=== PATIENT | female | born 1990 | race Hispanic/Latino ===

== ENCOUNTER → 2023-06-29 10:38 | Outpatient (CLI) | payer OTHER, SELFPAY ==
[2023-06-29 12:23] LABS: Hematocrit 36.4 % (36-46); Hemoglobin 12.7 g/dL (12.0-16.0)
[2023-06-29 12:49] LABS: GTT (PREG) 1 Hour PP 50gm Dose 173 mg/dL (76-139)
== END ==
PROVIDERS: Referring Provider Obstetrics & Gynecology; Visit Provider Obstetrics & Gynecology
DX: Z34.00 Encounter for supervision of normal first pregnancy, unspecified trimester (principal)
CPT/HCPCS: 36415; 82950; 85014; 85018

== ENCOUNTER → 2023-07-01 08:06 | Outpatient (CLI) | payer OTHER, SELFPAY ==
[2023-07-01 11:22] LABS: Glucose Tol Interp,Gestational INTERPRETATION
[2023-07-01 20:31] LABS: Glucose Fasting Gestational 94 mg/dL (76-95)
[2023-07-01 20:34] LABS: Glucose 1 Hour Gest 219 mg/dL (76-180)
[2023-07-01 21:09] LABS: Glucose 2 Hour Gest 193 mg/dL (76-155)
[2023-07-01 21:09] LABS: Glucose 3 Hour Gest 126 mg/dL (76-140)
== END ==
PROVIDERS: Referring Provider Obstetrics & Gynecology; Visit Provider Obstetrics & Gynecology
DX: R73.09 Other abnormal glucose (principal)
CPT/HCPCS: 36415; 82951; 82952

== ENCOUNTER → 2023-07-09 07:02 | Outpatient (CLI) | payer OTHER, SELFPAY ==
--- NOTE | 2023-07-09 07:03 | DI.US.S_ITS ---
PROCEDURE: US OB LIMITED INDICATIONS: interval growth scan, late transfer of care at 26wga OUTSIDE/PRIOR DATING DATA: Last menstrual period (LMP): 12/24/2022. LMP-based estimated date of delivery (SINCERE): 09/30/2023. (Working SINCERE) First dating scan (date and location): 05/11/2023. Estimated date of delivery (SINCERE) from first dating scan: 09/27/2023. TECHNIQUE: Real-time scanning was performed of the fetus, with image documentation. COMPARISON: None. FINDINGS: A single living intrauterine gestation is present. Presentation: Vertex. Placenta: Placental position is anterior, without previa. Amniotic fluid index: 18.9 cm, normal range is 5-24 cm. Single deepest vertical pocket is 4.5 heart rate: 145 beats per minute. Maternal cervical canal: 4.5 cm long. Normal lower limit is 2.5 cm. Clinically estimated gestational age: 28 weeks and 1 day Estimated gestational age from initial scan: 28 weeks and 4 days Estimated EFW is 70 percentile, 1316 g. BPD is 7 cm, 28 weeks Head circumference is 25.9 cm, 28 weeks and 1 day Abdominal circumference is 25.6 cm, 29 weeks and 5 days Femur length is 5.3 cm, 28 weeks and 2 days. IMPRESSION: Living intrauterine gestation at 28 weeks and 1 day. EFW at the 70th percentile. Normal fluid. Vertex presentation. Dictated by: Edin Samayoa M.D. on 07/09/2023 at 10:20 Approved by: Edin Samayoa M.D. on 07/09/2023 at 10:23
== END ==
PROVIDERS: Referring Provider Obstetrics & Gynecology; Visit Provider Obstetrics & Gynecology
DX: Z34.03 Encounter for supervision of normal first pregnancy, third trimester (principal); Z3A.28 28 weeks gestation of pregnancy; O24.419 Gestational diabetes mellitus in pregnancy, unspecified control; Z3A.38 38 weeks gestation of pregnancy; Z71.3 Dietary counseling and surveillance
CPT/HCPCS: 76815; 97802

== ENCOUNTER → 2023-07-09 07:03 | Outpatient (CLI) | payer OTHER, SELFPAY ==
--- NOTE | 2023-07-09 08:13 | DIAB.GDA ---
Initial Gestational Diabetes Assessment Name: Darlene Albert Date: 07/09/23 Time: 605-430a Dx: Gestational Diabetes Provider: Sandra SINCERE: 09/30/2023 Weeks: 28 Presents with spouse, Chris, today. FH of DM with maternal grandmother. Wanting to know BG goals. Started tracking macros. Was feeling panicky about new diagnosis. Feels she has over reduced food intake as a result. Questions about sugar beverages, BG goals. Does not go out to eat much. Cooks at home and avoids sugar. Craves coke, but not drinking those now. Trying to stay under 140g CHO per day,under [employer] for . Aiming for higher PRO. Diet Recall: : 2-3 eggs, strawberries x 1/2c or 2 cuties, gonsalves or swiss gonsalves +/- 8oz OJ OR Special K yogurt cereal sn: nothing or yogurt plain with berries and granola 11a-12p: salad with berries and salmon 2-4p: leftovers OR Meat, +/- potatoes or 1/2-1c rice with veggies 6-7p: Chicken or beef with veggies 10p: PB bar Beverages: 40oz water x 4, OJ x 4oz Drinking milk due to instead of her usual almond milk per recs by her mom. Anthropometrics: Ht: 62 Wt: 182# 06/2023 Prepregnancy wt: 160# Physical Activity: Walking 4-5x per week for 40 mins (2mi). Yoga and stretching. Self-Monitoring Blood Glucose: Starting checking FBG and 2 hour pc. Did not sleep well last night which likely impacted FBG today, c/o headache this morning. Anxious about this appt. Date Pre Post Pre Post Pre Post HS 07/06 79 111 73 104 07/07 73 118 OJ w/breakfst 102 95 07/08 100 Diabetes Medications: None Pertinent Labs: Screen 173 OGTT: 94, 219H, 193H, 126 Nutrition Rx: Carbohydrates: Daily: 180g Meal: 45-g lunch and dinner; 30g breakfast Snack: 15-30g Nutrition Diagnosis: Altered nutrition related lab value r/t GDM dx aeb recent OGTT Food and nutrition related knowledge deficit r/t new dx GDM aeb pt report and diet recall Intervention: This participant was very receptive. Provided appropriate educational handouts. Discussed the following topics: GDM pathophysiology and impact of hyperglycemia on mom and baby Plate Method, meal timing, carb counting, pairing macronutrients and spreading out CHO for better BG management Blood glucose goals (FBG: <95 and 2 hour <120 mg/dL); importance of checking 4x per day (FBG and pc) Impact of macronutrients on blood glucose Recommended servings for carbohydrates at meals and snacks Brainstormed appropriate meal plan based on her food preferences Role of physical activity and following provider guidelines for safety Impact of sugar beverages on BG Milk options during and nutrients provided--choosing Calcium food options Goals: Can switch to unsweet almond milk try to eat q 3-4 hours Aim for 45g CHO at lunch and dinner Avoid sugar beverages Follow-up: IMAN RAZA follow-up in one week Sachi Ayers RDN, LUZ MARINA Certified Diabetes Care and Jinrikisha Driver T: [phone] F: [phone] [email or web address] Thank you for this referral
== END ==
PROVIDERS: Referring Provider Student in an Organized Health Care Education/Training Program
DX: O24.419 Gestational diabetes mellitus in pregnancy, unspecified control (principal); Z3A.28 28 weeks gestation of pregnancy; Z71.3 Dietary counseling and surveillance
CPT/HCPCS: 76815; 97802

== ENCOUNTER → 2023-07-21 15:19 | Outpatient (CLI) | payer OTHER, SELFPAY ==
--- NOTE | 2023-07-21 15:29 | DIAB.GDFU ---
Addendum entered by Sachi Ayers 07/28/23 10:27: Difficulty with virtual visits. This check in was via phone call. 31 weeks today. Checking at 2 hours more consistently. Avoiding eating out at this time. Reports some poor sleep impacting fasting numbers. Reports some symptoms of stuffy nose and sore throat. Frequent waking due to this. Date Pre Post Pre Post Pre Post Notes 07/21 91 84 80 07/22 92 115 127 86 07/23 86 104 170 hamburger and fries 07/24 91 85 113 07/25 103 122 95 103 07/26 107 118 89 Elevated fasting: poor sleep 07/27 85 Breakfast:burrito with low carb ww tortilla (no fruit or hashbrowns) Lunch: Salad and salmon OR pasta x 3/4c OR beef with veggies Dinner: chicken, veggies snacks: plain yogurt berries and granola (10a-12p) and HS snack pb bar OR yogurt with granola Try to add pasta 3/4c or med potato to dinner Aim for 4 BG checks per day Aim for 2 snacks per day follow-up in one week. OB this week. Original Note: Follow-up Gestational Diabetes Assessment Name: Darlene Albert Date: 07/21/23 Time: 330-410p Dx: Gestational Diabetes Provider: Sandra SINCERE: 09/30/2023 Weeks: 30 Presents virtually using [facility] Portal. Trying to prepare more for meals. With recent eating out had some elevations, 179 and 195mg/dl. Now avoiding pizza, had elevation after. Diet Recall: 7a: breakfast burritos (35g tortilla) and fruit (3-4 berries) 10a: plain protein yogurt and berries and seeds/nuts 12-1p: salmon, salad, strawberries with trail mix OR potatoes, chicken, veggies 4p: same as lunch 6-7p: chicken with veggies stir heath +/- potatoes 1/4c OR taco x 1-2 OR quesadilla OR steak and veggies 10p: PB bar or nothing Beverages: 40oz water x 4 cut out OJ Coffee with a little creamer No longer drinking milk. Having two string cheeses per day. Asking about bread for breakfast. Anthropometrics: Ht: 62 Wt: 184.25# 07/14/2023 Prepregnancy wt: 160# Physical Activity: Walking 4-5x per week for 40 mins (2mi). Yoga and stretching. Wants to start stationary bike. More sciatic nerve pain per report. Self-Monitoring Blood Glucose: Checking FBG and 2 hour pc. Reports OB discussed checking TID, FBG and 2 x 2 hour pc, if painful. Pricking on side of finger to reduce pain. States she does not mind checking 4 x per day. given variations after meals and so many missing data points, RD thinks she may benefit from more consistent SMBG. Worries about running out of strips. Reviewed box and has 3 refills left. Quite variable readings postprandial. Often later than 2 hours and ranging from as low as 76 up to 191. Asking about CGM, however unlikely to be covered since she is not currently needing insulin therapy. Date Pre Post Pre Post Pre Post notes 07/14 77 140 125 07/15 84 115 07/16 82 191 pizza 07/17 83 76 HS 68mg/dl Dinner: salad, potato, and protein 07/18 78 125 3hr 85 07/19 78 71 Moving homes 07/20 89 110 2.5 hr Diabetes Medications: None Pertinent Labs: Screen 173 OGTT: 94, 219H, 193H, 126 Nutrition Rx: Carbohydrates: Daily: 180g Meal: 45-g lunch and dinner; 30g breakfast Snack: 15-30g Nutrition Diagnosis: Altered nutrition related lab value r/t GDM dx aeb recent OGTT Food and nutrition related knowledge deficit r/t new dx GDM aeb pt report and diet recall- improved Excessive CHO intake r/t eating on the go aeb pt report and BG >170mg/dl- new Intervention: This participant was very receptive. Provided appropriate educational handouts. Discussed the following topics: Recent blood sugar results and impact of food and hormones Review of portion recommendations during usual criteria for CGM rx Bg trends, importance of BG checks at 2 hours vs 3, encouraged 3-4 checks per day especially FBG, pc breakfast and pc dinner. Eating out portion recommendations CHO recs for breakfast Goals: Can switch to unsweet almond milk- d/c try to eat q 3-4 hours- met Aim for 45g CHO at lunch and dinner- in progress Avoid sugar beverages- met Cut out fruit with burrito for breakfast- new Try check BG no later than 2 hour pc- new Check 3-4x per day- new Follow-up: IMAN RAZA follow-up in one week Sachi Ayers RDN, LUZ MARINA Certified Diabetes Care and Fuselage Framer T: [phone] F: [phone] [email or web address] Thank you for this referral
== END ==
PROVIDERS: Referring Provider Student in an Organized Health Care Education/Training Program
DX: O24.419 Gestational diabetes mellitus in pregnancy, unspecified control (principal); Z3A.30 30 weeks gestation of pregnancy; Z71.3 Dietary counseling and surveillance
CPT/HCPCS: 97803

== ENCOUNTER → 2023-08-04 15:09 | Outpatient (CLI) | payer OTHER, SELFPAY ==
--- NOTE | 2023-08-04 15:10 | DIAB.GDFU ---
Follow-up Gestational Diabetes Assessment Name: Darlene Albert Date: 08/04/23 Time: 305-350p Dx: Gestational Diabetes Provider: Sandra SINCERE: 09/30/2023 Weeks: 32 Darlene presents for GDM visit virtually using [facility] Portal. Plans for US today, growth scan. Reports frequent urination, 4 x each night. Questions regarding lancet disposal and use. Reports feeling very hungry late in the night. Sometimes skips HS snack. Some breakfasts high in CHO with toast and banana, causing elevations. Also, sometimes eating out causing elevations, ie sushi rolls. Diet Recall: -9a: breakfast burritos on low CHO tortilla OR toast with eggs, fruit, gonsalves 12p: Salad with salmon or veggies with chx/steak 2-3p: chicken ravioli + chx on side 6-7p: chicken or beef or salmon with veggies and salad added potatoes sn: nothing or protein bar bed: 10-11p 3-4 x 40oz per day water Aiming for protein bar before bed. Anthropometrics: Ht: 62 Wt: 185# 07/30/2023 Prepregnancy wt: 160# Physical Activity: Walking 4-5 days per week x 30-40 mins. Some body weight exercises. Went to birthing classes and learned some exercises from PT. Self-Monitoring Blood Glucose: 2/7 elevated FBG. 2/7 elevated pc breakfast. 1/6 elevated pc lunch. 2/5 elevated pc dinner. Elevations after meals are directly related to excessive CHO intake. Some poor sleep may be contributing to elevated fastings. If FBG continue above goal, would benefit from insulin therapy. Date Pre Post Pre Post Pre Post HS 07/28 99 95 81 112 07/29 91 104 89 112 07/30 87 77 152 130 lunch cooked sushi roll 07/31 92 90 101 x 08/01 84 101 94 123 08/02 97 154 81 111 breakfast: extra creamer in coffee, burrito, fruit 08/03 93 128 breakfast: eggs, 2 toast, cheese, banana Diabetes Medications: None Pertinent Labs: Screen 173 OGTT: 94, 219H, 193H, 126 Nutrition Rx: Carbohydrates: Daily: 180g Meal: 45-g lunch and dinner; 30g breakfast Snack: 15-30g Nutrition Diagnosis: Altered nutrition related lab value r/t GDM dx aeb recent OGTT Excessive CHO intake r/t eating on the go aeb pt report and BG >170mg/dl- improved Intervention: This participant was very receptive. Provided appropriate educational handouts. Discussed the following topics: Sharps disposal Carb recs at breakfast consistent HS snack for BG and hunger Physical activity Sleep Goals: Try to add pasta 3/4c or med potato to dinner- met Aim for 4 BG checks per day - met Aim for 2 snacks per day - improved Have a snack at 9-10p- new Choose bread OR fruit at breakfast- new Low carb tortilla, can add fruit-new Follow-up: IMAN RAZA follow-up in two weeks. OB visit in one week. Darlene may benefit from medication management, however at this time most of her BG are in range. Poor sleep and diet seem to be the main factors in her hyperglycemia. Sachi Ayers RDN, CDCES Certified Diabetes Care and Float Builder T: [phone] F: [phone] [email or web address] Thank you for this referral
== END ==
PROVIDERS: Referring Provider Student in an Organized Health Care Education/Training Program
DX: O24.419 Gestational diabetes mellitus in pregnancy, unspecified control (principal); Z3A.32 32 weeks gestation of pregnancy; Z71.3 Dietary counseling and surveillance
CPT/HCPCS: 97803

== ENCOUNTER → 2023-08-04 16:48 | Outpatient (CLI) | payer OTHER, SELFPAY ==
--- NOTE | 2023-08-04 16:49 | DI.US.S_ITS ---
PROCEDURE: US OB LIMITED INDICATIONS: A1 GDM OUTSIDE/PRIOR DATING DATA: Last menstrual period (LMP): 12/24/2022 LMP-based estimated date of delivery (SINCERE): 09/30/2023 First dating scan (date and location): 05/11/2023 Estimated date of delivery (SINCERE) from first dating scan: 09/27/2023 Working SINCERE is 09/30/2023. TECHNIQUE: Real-time scanning was performed of the fetus, with image documentation and biometric measurements. Endovaginal scanning: Not performed. COMPARISON: [facility], OB LIMITED, 07/09/2023, 7:33. FINDINGS: General: A single living intrauterine gestation is present. Presentation: Vertex Placenta: Placental position is anterior, without previa. Amniotic fluid index: 13.1 cm, normal range is 5-24 cm. Single deepest vertical pocket is 5.8 cm. heart rate: 136 beats per minute. Maternal cervical canal: 2.9 cm long. Normal lower limit is 2.5 cm. biometrics: Biparietal diameter: 8.2 cm, 33 weeks 0 days Head circumference: 30.1 cm, 33 weeks 3 days Abdominal circumference: 29.3 cm, 33 weeks 2 days Femur length: 6.4 cm, 33 weeks 0 days Clinically estimated gestational age: 31 weeks 6 days Composite gestational age from present scan: 33 weeks 1 day Estimated weight and percentile: 2133 g, 80th percentile IMPRESSION: 1. Single live intrauterine with appropriate interval growth. 2. Estimated weight is at the 80th percentile for clinical gestational age. Approved by: Satish Kern M.D. on 08/05/2023 at 10:58
== END ==
PROVIDERS: Referring Provider Obstetrics & Gynecology; Visit Provider Obstetrics & Gynecology
DX: O24.419 Gestational diabetes mellitus in pregnancy, unspecified control (principal); Z3A.33 33 weeks gestation of pregnancy; Z3A.32 32 weeks gestation of pregnancy; Z71.3 Dietary counseling and surveillance
CPT/HCPCS: 76815; 97803

== ENCOUNTER → 2023-08-18 16:21 | Outpatient (CLI) | payer OTHER, SELFPAY ==
--- NOTE | 2023-08-18 16:23 | DIAB.GDFU ---
Follow-up Gestational Diabetes Assessment Name: Darlene Albert Date:08/18/23 Time:208-240p Dx: Gestational Diabetes Provider: Sandra SINCERE: 09/30/2023 Weeks: 34 Darlene presents for telehealth follow-up using Portal. Sees OB next Wednesday at 35 weeks. Doesn?t want a c section and worries if baby is LGA she may need one. Last growth scan indicates 80th percentile. Reports really wanting to try vaginal first. Today we discussed risks with LGA. Doing yogurt with berries parfaits for breakfast Started Metformin 500 mg daily 08/10, but still having significant fasting elevations. Plan for CGM sample and insulin demo Goals: Snack yes Choosing bread or fruit- yes usually fruit Low carb tortilla- yes 1x per week Anthropometrics: Ht: 62 Wt: 185# last OB 08/11/23 Prepregnancy wt: 160# Self-Monitoring Blood Glucose: FBG continue to be above goal. Some elevated postprandial after dinner primarily. Would recommend insulin therapy HS for FBG management. She has questions regarding insulin and feeling as though she does not know how to navigate this. Date Pre Post Pre Post Pre Post notes 08/11 87 111 134 08/12 103 73 100 100 08/13 92 115 92 89 08/14 100 102 103 106 7/ 99 105 125 137 Sweet snack 08/16 100 114 129 08/17 100 91 Diabetes Medications: 500mg Metformin Pertinent Labs: Screen 173 OGTT: 94, 219H, 193H, 126 Intervention: This participant was very receptive. Provided appropriate educational handouts. Discussed the following topics: Recent blood sugar results and impact of hormones Indications for c section vs vaginal with LGA Impact of hyperglycemia on baby Risk for T2DM and ways to reduce risk Nutrition review Potential for insulin therapy with consistent FBG elevations Brief insulin education on injection and timing Potential for CGM Goals: Have a snack at 9-10p- met Choose bread OR fruit at breakfast- met Low carb tortilla, can add fruit-met Keep eye out for potential insulin rx- new Follow-up: IMAN RAZA follow-up within one week. If insulin is rx'd by provider will see Darlene cara for insulin education. Will check with her before end of this week. This RD did message OB about potential for insulin therapy and BG results. Sachi Ayers, IMAN, [facility] Certified Diabetes Care and Manager Metrology T: [phone] F: [phone] [email or web address] Thank you for this referral
== END ==
LOC: DIET 16:21
PROVIDERS: Referring Provider Obstetrics & Gynecology
DX: O24.415 Gestational diabetes mellitus in pregnancy, controlled by oral hypoglycemic drugs (principal); Z3A.34 34 weeks gestation of pregnancy; Z71.3 Dietary counseling and surveillance
CPT/HCPCS: G0108

== ENCOUNTER → 2023-08-20 16:54 | Outpatient (CLI) | payer OTHER, SELFPAY ==
--- NOTE | 2023-08-20 17:32 | DIAB.GDFU ---
Follow-up Gestational Diabetes Assessment Name: Darlene Albert Date: 08/20/23 Time: 505-6p Dx: Gestational Diabetes Provider: Sandra SINCERE: 09/30/2023 Weeks: 34 Darlene presents for follow-up for insulin education and CGM sample. Sees OB next Wednesday at 35 weeks. Has questions about when to take Metformin. OB agrees with adding insulin therapy HS. Darlene is on board and did well with a return insulin demo. Anthropometrics: Ht: 62 Wt: 185# last OB 08/11/23 Prepregnancy wt: 160# Self-Monitoring Blood Glucose: 97 FBG this morning. Consistent elevated FBG. Date Pre Post Pre Post Pre Post notes 08/11 87 111 134 08/12 103 73 100 100 08/13 92 115 92 89 08/14 100 102 103 106 08/15 99 105 125 137 Sweet snack 08/16 100 114 129 08/17 100 91 Diabetes Medications: 500mg Metformin Pertinent Labs: Screen 173 OGTT: 94, 219H, 193H, 126 Intervention: This participant was very receptive. Provided appropriate educational handouts. Discussed the following topics: Recent blood sugar results Take Metformin with dinner Insulin education Injection education, precautions, returned demo, Rule of 15 for lows CGM sample Reviewed CGM use and equipment Discussed when to check blood sugars using finger stick Reviewed high and low blood sugar signs/symptoms and treatment options Provided education for self-administration of CGM placement Educated patient on alarm settings Discussed when to replace equipment and disposal Goals: Have a snack at 9-10p- met Choose bread OR fruit at breakfast- met Low carb tortilla, can add fruit-met Keep eye out for potential insulin rx- new Take Metformin with dinner - new Wear CGM x 10 days - new Follow-up: IMAN RAZA follow-up within one week. Sachi Ayers RDN, LUZ MARINA Certified Diabetes Care and Mill Manager T: [phone] F: [phone] [email or web address] Thank you for this referral
== END ==
PROVIDERS: Referring Provider Student in an Organized Health Care Education/Training Program
DX: O24.414 Gestational diabetes mellitus in pregnancy, insulin controlled (principal); Z3A.34 34 weeks gestation of pregnancy; Z71.3 Dietary counseling and surveillance
CPT/HCPCS: G0108

== ENCOUNTER → 2023-08-25 08:29 | Outpatient (CLI) | payer OTHER, SELFPAY ==
--- NOTE | 2023-08-25 17:17 | DIAB.GDFU ---
Follow-up Gestational Diabetes Assessment Name: Darlene Albert Date: 08/25/23 Time: 3-271l Dx: Gestational Diabetes Provider: Sandra SINCERE: 09/30/2023 Weeks: 35 Darlene presents for follow-up for GDM. States OB needs dosing recs for NPH. RD messaged recs of starting at 10u HS and OB confirmed rx will be sent today. Continues to have elevated BG. Taking Metformin with dinner. Plans to schedule growth scan today. Recent illness r/t SE from RSV vaccine, now resolved. Has questions regarding T2DM risk reduction. Anthropometrics: Ht: 62 Wt: 187# last OB today Prepregnancy wt: 160# Self-Monitoring Blood Glucose: Per CGM sample results continues to have elevations each morning, often in the low 100s. Also having some postprandial elevations often in the 140-160mg/dl, once 190mg/dl-- she is unsure what she had for dinner that night that may have caused this elevation. After picking up insulin rx, will message provider to send CGM rx as well for best insurance coverage. TIR: 0% over 250mg/dl 18% over 140mg/dl 81% 70-140mg/dl <1% <70mg/dl Diabetes Medications: 500mg Metformin Pertinent Labs: Screen 173 OGTT: 94, 219H, 193H, 126 Intervention: This participant was very receptive. Provided appropriate educational handouts. Discussed the following topics: Recent blood sugar results and impact of food and hormones Review of macronutrient recommendations during Benefits, resources, and nutrition for recommendations for nutrition and physical activity recommendations for T2DM risk reduction OGTT at 6-12 weeks Checking blood sugars twice per week (goal: fasting <100 mg/dL and 2 hour pc <140 mg/dL) until 6 week check-up HgA1c q 1-3 years. Insulin dosing recs and titration Goals: Keep eye out for potential insulin rx- continue Take Metformin with dinner - met Wear CGM x 10 days -continue Follow-up: IMAN RAZA follow-up 1 week for 1:1 visit and will also check -in by Wednesday by messaging or phone on BG via CGM and if insulin therapy started. Sachi Ayers RDN, LUZ MARINA Certified Diabetes Care and Key Holder T: [phone] F: [phone] Thank you for this referral
== END ==
PROVIDERS: Referring Provider Obstetrics & Gynecology
DX: O24.415 Gestational diabetes mellitus in pregnancy, controlled by oral hypoglycemic drugs (principal); Z3A.35 35 weeks gestation of pregnancy; Z71.3 Dietary counseling and surveillance
CPT/HCPCS: G0108

== ENCOUNTER 2023-08-27 16:33 | Outpatient (CLI) | payer OTHER, SELFPAY ==
--- NOTE | 2023-08-27 17:04 | PM.OBTRLD ---
Visit Information Visit Information On-call OB Provider: Maris Bates Reason for Evaluation: Yes non-stress test [facility] Medical History (Updated 08/07/23 @ 16:07 by Pretty Zheng) Chicken pox Migraine without aura (~2019) Gestational diabetes mellitus (GDM) Encounter for supervision in primigravida, antepartum Kidney stone Surgical History (Updated 08/07/23 @ 16:07 by Pretty Zheng) Anesthesia History of oral surgery (~2022) [place] teeth extracted (~2012) Family History (Updated 08/07/23 @ 16:09 by Pretty Zheng) Grandmother Diabetes mellitus Hypertension Uncle Diabetes mellitus Uncle Diabetes mellitus Grandfather Family estrangement Diabetes mellitus Grandmother Dementia Hypertension Kidney disease Brother Hyperlipidemia Brother Mental health problem Social History marital status: number of children: 0 household members: spouse lives independently: Yes caregiver/support person: No housing: apartment pets and animals: No education level: college (some college) occupational status: previously employed current occupational exposures/hazards: No special shiv needs: No travel history: recent (domestic only) seatbelt use: always helmet use: Yes water heater temp set < 120 deg: Yes working smoke detector in home: Yes fire extinguisher in home: No carbon monox detector in home: Yes firearms in home: No do you feel safe at home: Yes Smoking Status: Never smoker second hand exposure: No alcohol intake: former (~2/week when not ) substance use type: does not use during the past year weight has: increased > 10 lbs well-balanced diet: daily or most days daily servings fruits/ve-4 (mostly fruit) caffeine: Yes (minimal) Type(s) of exercise: walking and bicycling (stationary bike) frequency: 3-4 times per week Evaluation Evaluation Baseline heart rate: 130 Variability: Moderate (11-25) monitor accelerations: Present Monitor Decelerations: Absent Category of Tracing: Reactive Diagnosis, Plan/Disposition Final Diagnosis (1) Gestational diabetes mellitus (GDM): Status: Acute Plan/Disposition Plan: Follow-up in clinic as scheduled. OB Disposition: home
== END 2023-08-27 17:20 | disposition home or self-care (01) ==
LOC: OB 08-30 06:48
PROVIDERS: Referring Provider Obstetrics & Gynecology; Visit Provider Obstetrics & Gynecology
DX: O24.414 Gestational diabetes mellitus in pregnancy, insulin controlled (principal); Z3A.35 35 weeks gestation of pregnancy
CPT/HCPCS: 59025; G0378; G0379

== ENCOUNTER → 2023-08-31 06:50 | Outpatient (CLI) | payer OTHER, SELFPAY ==
--- NOTE | 2023-08-31 06:51 | DI.US.S_ITS ---
PROCEDURE: US OB LIMITED INDICATIONS: EFW; A2GDM OUTSIDE/PRIOR DATING DATA: Last menstrual period (LMP): 12/24/2022. LMP-based estimated date of delivery (SINCERE): 09/30/2023. First dating scan (date and location): 05/11/2023. Estimated date of delivery (SINCERE) from first dating scan: 09/27/2023. The calculations are made using the clinical SINCERE of 09/30/2023. TECHNIQUE: Real-time scanning was performed of the fetus, with image documentation and biometric measurements. Endovaginal scanning: Not performed COMPARISON: [facility], OB LIMITED, 08/04/2023, 17:02. FINDINGS: General: A single living intrauterine gestation is present. Presentation: Vertex. Placenta: Placental position is anterior , without previa. Amniotic fluid index: 15.6 cm, normal range is 5-24 cm. Single deepest vertical pocket is 5.8 cm. heart rate: 140 beats per minute. Maternal cervical canal: Not visualized biometrics: Biparietal diameter: 8.7 cm, 35 weeks 1 day Head circumference: 31.1 cm, 35 weeks 5 days Abdominal circumference: 32.1 cm, 36 weeks 0 days Femur length: 6.8 cm, 34 weeks 6 days Clinically estimated gestational age: 35 weeks 5 days Composite gestational age from present scan: 35 weeks 1 day Estimated weight and percentile: 2692 g, 43rd percentile Other: Not applicable. IMPRESSION: Single living intrauterine at 35 weeks 5 days, SINCERE of 09/30/2023. Estimated weight of 2692 g, 43rd percentile. We strive to produce accurate, complete, and clear reports of imaging services. To assist us in improving patient care, this report was composed using standard report templates and voice recognition software. Therefore, it may contain abnormal punctuation, insertions and/or omissions. Occasional wrong-word or sound-alike substitutions may occur. Though we review the report and make efforts to correct it, we do recommend that the report be read carefully in proper context to recognize any text inaccuracies. Dictated by: Austin Calzada M.D. on 08/31/2023 at 11:14 Approved by: Austin Calzada M.D. on 08/31/2023 at 11:16
== END ==
PROVIDERS: Referring Provider Obstetrics & Gynecology; Visit Provider Obstetrics & Gynecology
DX: O24.419 Gestational diabetes mellitus in pregnancy, unspecified control (principal); Z3A.35 35 weeks gestation of pregnancy
CPT/HCPCS: 76815

== ENCOUNTER 2023-08-31 07:58 | Outpatient (CLI) | payer OTHER, SELFPAY ==
--- NOTE | 2023-08-31 08:29 | P.TNLD_ITS ---
Visit Information Visit Information Date of evaluation: 08/31/23 Primary OB Provider: Rhea Flores On-call OB Provider: Maris Bates Reason for Evaluation: Yes non-stress test Comments/Additional reasons for admission: A2GDM [facility] Medical History (Updated 08/07/23 @ 16:07 by Pretty Zheng) Chicken pox Migraine without aura (~2019) Gestational diabetes mellitus (GDM) Encounter for supervision in primigravida, antepartum Kidney stone Surgical History (Updated 08/07/23 @ 16:07 by Pretty Zheng) Anesthesia History of oral surgery (~2022) [place] teeth extracted (~2012) Family History (Updated 08/07/23 @ 16:09 by Pretty Zheng) Grandmother Diabetes mellitus Hypertension Uncle Diabetes mellitus Uncle Diabetes mellitus Grandfather Family estrangement Diabetes mellitus Grandmother Dementia Hypertension Kidney disease Brother Hyperlipidemia Brother Mental health problem Social History marital status: number of children: 0 household members: spouse lives independently: Yes caregiver/support person: No housing: apartment pets and animals: No education level: college (some college) occupational status: previously employed current occupational exposures/hazards: No special shiv needs: No travel history: recent (domestic only) seatbelt use: always helmet use: Yes water heater temp set < 120 deg: Yes working smoke detector in home: Yes fire extinguisher in home: No carbon monox detector in home: Yes firearms in home: No do you feel safe at home: Yes Smoking Status: Never smoker second hand exposure: No alcohol intake: former (~2/week when not ) substance use type: does not use during the past year weight has: increased > 10 lbs well-balanced diet: daily or most days daily servings fruits/ve-4 (mostly fruit) caffeine: Yes (minimal) Type(s) of exercise: walking and bicycling (stationary bike) frequency: 3-4 times per week Evaluation Evaluation Baseline heart rate: 140 Variability: Average (6-10) monitor accelerations: Present Monitor Decelerations: Absent Category of Tracing: Reactive Status: Category l Comments: reactive NST Diagnosis, Plan/Disposition Plan/Disposition Plan: continue twice weekly NST OB Disposition: home
== END 2023-08-31 08:28 | disposition home or self-care (01) ==
LOC: OB 09-03 06:37
PROVIDERS: Referring Provider Obstetrics & Gynecology; Visit Provider Obstetrics & Gynecology
DX: O24.419 Gestational diabetes mellitus in pregnancy, unspecified control (principal); Z3A.35 35 weeks gestation of pregnancy
CPT/HCPCS: 59025; 76815; 87653; G0378; G0379

== ENCOUNTER → 2023-08-31 09:03 | Outpatient (CLI) | payer OTHER, SELFPAY ==
--- NOTE | 2023-09-07 16:50 | DIAB.GDFU ---
Follow-up Gestational Diabetes Assessment Name: Darlene Albert Date: 08/31/23 Time: Dx: Gestational Diabetes Provider: Sandra SINCERE: 09/30/2023 Weeks: 35-36 Darlene presents for follow-up for GDM virtually using [facility]. Taking NPH 10u HS since Wednesday. Reports FBG 87-92mg/dl since then. CGM sensor sample . RD messaged OB about CGM rx. Feels she has a good grasp on food choices. Reports a few elevations r/t high CHO intake, ie eating out burger. Stopped Metformin after starting NPH. Completed growth US. Purchased colostrum collectors. Has received education from on hand expression after 37 weeks. Has questions about foods to eat to encourage . Diet Recall: B: eggs, turkey gonsalves or Craven gonsalves, toast OR yogurt and fruit OR breakfast burritos on low CHO tortilla L: Salad with salmon and fruit OR chicken stir heath no rice Sn: yogurt with fruit and granola D: chicken/beef and veggies +/- potatoes Sn: nothing OR protein bar OR carb balance ice cream (15g CHO per bar) on a lower CHO diet, which impacts what foods are in the house, ie less rice and potatoes in the home. Denies any questions regarding nutrition and/or DM risk. Plans to start food prepping more now so she is ready for meals after baby comes. Anthropometrics: Ht: 62 Wt: 189# last OB today Prepregnancy wt: 160 Self-Monitoring Blood Glucose: Per CGM, FBG tend to be <95. Elevated lunch or dinner pc readings 0-1x per day. Today TIR: 0% over 250mg/dl 13% over 140mg/dl 87% 70-140mg/dl <0% <70mg/dl av mg/dl GMI: 6% variation: 20.6% Last TIR: 0% over 250mg/dl 18% over 140mg/dl 81% 70-140mg/dl <1% <70mg/dl Diabetes Medications: 10u NPH HS Pertinent Labs: Screen 173 OGTT: 94, 219H, 193H, 126 Nutrition Rx: Carbohydrates: Meal: 45-g lunch and dinner; 30g breakfast Snack: 15-30g Nutrition Diagnosis: Altered nutrition related lab value r/t GDM dx aeb recent OGTT Intervention: This participant was very receptive. Provided appropriate educational handouts. Discussed the following topics: Recent blood sugar results and impact of food and hormones Review of macronutrient recommendations during Easy food prep ideas Answered questions regarding nutrition and choosing balanced higher fiber meals/snacks Benefits, resources, and nutrition for recommendations for nutrition and physical activity recommendations for T2DM risk reduction OGTT at 6-12 weeks Checking blood sugars twice per week (goal: fasting <100 mg/dL and 2 hour pc <140 mg/dL) until 6 week check-up HgA1c q 1-3 years. Goals: Wear CGM x 10 days -met Message RD about sensor Rx - new Follow recs discussed- new Follow-up: IMAN RAZA follow-up prn. BG seem to be well managed most days. Encouraged her to call or message with questions prn. Sachi Ayers RDN, [facility] Certified [facility] and [employer] T: [phone] F: [phone] [email or web address] Thank you for this referral
== END ==
PROVIDERS: Referring Provider Student in an Organized Health Care Education/Training Program
DX: O24.414 Gestational diabetes mellitus in pregnancy, insulin controlled (principal); Z3A.35 35 weeks gestation of pregnancy; Z71.3 Dietary counseling and surveillance
CPT/HCPCS: 97803

== ENCOUNTER → 2023-08-31 11:22 | Outpatient (CLI) | payer OTHER, SELFPAY ==
[2023-09-01 14:13] LABS: Strep Grp B PCR POS for Grp B Strep
== END ==
PROVIDERS: Referring Provider Obstetrics & Gynecology; Visit Provider Obstetrics & Gynecology
DX: Z34.03 Encounter for supervision of normal first pregnancy, third trimester (principal)
CPT/HCPCS: 87653

== ENCOUNTER 2023-09-02 16:35 | Outpatient (CLI) | payer OTHER, SELFPAY | END 2023-09-02 17:11 | disposition home or self-care (01) | LOC: LABOR 16:43 → OB 09-06 10:12 | PROVIDERS: Referring Provider Obstetrics & Gynecology; Visit Provider Obstetrics & Gynecology | DX: O24.414 Gestational diabetes mellitus in pregnancy, insulin controlled (principal); Z3A.36 36 weeks gestation of pregnancy | CPT/HCPCS: 36415; 59025; 86850; G0378; G0379 ==

== ENCOUNTER → 2023-09-02 17:19 | Outpatient (CLI) | payer OTHER, SELFPAY | PROVIDERS: Referring Provider Obstetrics & Gynecology; Visit Provider Obstetrics & Gynecology | DX: O26.893 Other specified pregnancy related conditions, third trimester (principal); Z67.91 Unspecified blood type, Rh negative | CPT/HCPCS: 36415; 86850 ==

== ENCOUNTER 2023-09-06 08:55 | Outpatient (CLI) | payer OTHER, SELFPAY | END 2023-09-06 09:50 | disposition home or self-care (01) | LOC: LABOR 09:00 → OB 09-08 09:24 | PROVIDERS: Referring Provider Obstetrics & Gynecology; Visit Provider Obstetrics & Gynecology | DX: O24.419 Gestational diabetes mellitus in pregnancy, unspecified control (principal); O47.03 False labor before 37 completed weeks of gestation, third trimester; Z3A.36 36 weeks gestation of pregnancy | CPT/HCPCS: 59025; G0378; G0379 ==

== ENCOUNTER 2023-09-09 16:28 | Outpatient (CLI) | payer OTHER, SELFPAY | END 2023-09-09 17:28 | disposition home or self-care (01) | LOC: LABOR 17:27 → OB 09-13 13:09 | PROVIDERS: Referring Provider Obstetrics & Gynecology; Visit Provider Obstetrics & Gynecology | DX: O47.1 False labor at or after 37 completed weeks of gestation (principal); O24.913 Unspecified diabetes mellitus in pregnancy, third trimester; Z79.4 Long term (current) use of insulin; Z3A.37 37 weeks gestation of pregnancy | CPT/HCPCS: 59025; G0378; G0379 ==

== ENCOUNTER 2023-09-14 08:13 | Outpatient (CLI) | payer OTHER, SELFPAY | END 2023-09-14 08:47 | disposition home or self-care (01) | LOC: LABOR 08:34 → OB 09-15 09:19 | PROVIDERS: Referring Provider Obstetrics & Gynecology; Visit Provider Obstetrics & Gynecology | DX: O24.913 Unspecified diabetes mellitus in pregnancy, third trimester (principal); Z3A.37 37 weeks gestation of pregnancy; Z79.4 Long term (current) use of insulin | CPT/HCPCS: 59025; G0378; G0379 ==

== ENCOUNTER 2023-09-17 09:46 | Outpatient (CLI) | payer OTHER, SELFPAY | END 2023-09-17 10:40 | disposition home or self-care (01) | LOC: LABOR 10:05 → OB 09-20 09:07 | PROVIDERS: Referring Provider Obstetrics & Gynecology; Visit Provider Obstetrics & Gynecology | DX: O24.913 Unspecified diabetes mellitus in pregnancy, third trimester (principal); Z3A.38 38 weeks gestation of pregnancy; Z79.4 Long term (current) use of insulin | CPT/HCPCS: 59025; G0378; G0379 ==

== ENCOUNTER 2023-09-21 09:34 | Observation (INO) | payer OTHER, SELFPAY | END 2023-09-21 11:42 | disposition home or self-care (01) | PROVIDERS: Admitting Provider Obstetrics & Gynecology; Referring Provider Obstetrics & Gynecology; Visit Provider Obstetrics & Gynecology | DX: O24.913 Unspecified diabetes mellitus in pregnancy, third trimester (principal); O47.1 False labor at or after 37 completed weeks of gestation; Z3A.38 38 weeks gestation of pregnancy | CPT/HCPCS: 59025; 59050; G0378; G0379 ==

== ENCOUNTER 2023-09-24 15:02 | Outpatient (CLI) | payer OTHER, SELFPAY ==
--- NOTE | 2023-09-24 15:53 | DI.US.S_ITS ---
PROCEDURE: US OB BIOPHYSICAL PROFILE INDICATIONS: TERM; INSULIN DIABETES OUTSIDE/PRIOR DATING DATA: Last menstrual period (LMP): 12/24/2022. LMP-based estimated date of delivery (SINCERE): 09/30/2023. First dating scan (date and location): 05/11/2023. Estimated date of delivery (SINCERE) from first dating scan: 09/27/2023. The calculations are made using the clinical SINCERE of 09/30/2023. TECHNIQUE: Real-time scanning was performed of the fetus for biophysical profile, with image documentation. Endovaginal scanning: Not performed COMPARISON: None. FINDINGS: General: A single living intrauterine gestation is present. Presentation: Vertex. Placenta: Placental position is anterior , without previa. Amniotic fluid index: 17.6 cm, normal range is 5-24 cm. Single deepest vertical pocket is 3 cm. heart rate: 127 beats per minute. Maternal cervical canal: Not well seen. Clinically estimated gestational age: 39 weeks 1 day Biophysical profile: Tone: 2 points. Movement: 2 points. Respiration: 2 points. Largest pocket of fluid: 2 points. Umbilical artery Doppler: Not requested IMPRESSION: Single living intrauterine at 39 weeks 1 day, SINCERE of 09/30/2023. BPP 8 of 8. We strive to produce accurate, complete, and clear reports of imaging services. To assist us in improving patient care, this report was composed using standard report templates and voice recognition software. Therefore, it may contain abnormal punctuation, insertions and/or omissions. Occasional wrong-word or sound-alike substitutions may occur. Though we review the report and make efforts to correct it, we do recommend that the report be read carefully in proper context to recognize any text inaccuracies. Dictated by: Austin Calzada M.D. on 09/24/2023 at 17:21 Approved by: Austin Calzada M.D. on 09/24/2023 at 17:25
== END 2023-09-24 16:57 | disposition home or self-care (01) ==
LOC: LABOR 16:26 → OB 09-28 12:29
PROVIDERS: Referring Provider Obstetrics & Gynecology; Visit Provider Obstetrics & Gynecology
DX: O24.913 Unspecified diabetes mellitus in pregnancy, third trimester (principal); Z79.4 Long term (current) use of insulin; Z3A.39 39 weeks gestation of pregnancy
CPT/HCPCS: 59025; 59050; 76819; 84112; G0378; G0379

== ENCOUNTER 2023-09-27 11:37 | Inpatient (IN) | payer OTHER, SELFPAY ==
--- NOTE | 2023-09-27 12:32 | P.HPOB_ITS ---
OB HPI Date/Time Date of admission: 09/27/23 Date Patient Seen: 09/27/23 Time Patient Seen: 12:33 History of Present Condition Chief complaint: IOL for A2GDM : 1 Estimated Date of Delivery: 09/30/23 Estimated Gestational Age (weeks): 39w4d Narrative: Darlene Ragsdale is a 33 year old female G1 at 39w4d by 9wk OSH US who presents to labor and delivery for admission, scheduled indicated induction of labor in setting of well-controlled A2GDM (insulin/metformin). Patient has had regular PNC throughout , only complication being maternal GDM necessitating initiation of insulin therapy at approx 32wga (current regimen 10u NPH QHS + 500mg PO metformin QHS). Pt has had adequate glycemic control since initiation of medication and last growth scan at 36wga with EFW 2692g (43rd%). Pt has been compliant with increased surveillance which has overall been reassuring. Last NST 09/24/23 did have 2 subtle late decelerations however subsequent reactive NST and formal BPP 11/24. Pt states no acute concerns today, understandably anxious in anticipation of labor. +FM, denies VB, LOF, dysuria, ctx. Indications Indication for induction OB: gestational diabetes (A2) History of Present care: good care Dating criteria: based on 1st trimester US only Obstetrical complications: gestational diabetes Medical complications: none Preadmission Labs Blood type: 0 (-) negative -: Antibody screen: negative, Cystic fibrosis screen: unknown, GBS status: positive, HBsAG: negative, HIV: negative, HSV 1: unknown, HSV 2: unknown and RPR/VDLR: negative -: Chlamydia screen: not detected and Gonorrhea screen: not detected -: Rubella: immune and Varicella: immune HCT: 39.9 Cell-free DNA: low-risk XX 1 hr GTT: 176 3 hr GTT: 1 hr (219), 2 hr (193) and 3 hr (126) Fasting blood glucose: 94 Evaluation Evaluation Baseline heart rate: 140 Variability: Moderate (11-25) monitor accelerations: Present Monitor Decelerations: Absent Uterine Contraction Intensity: Mild Category of Tracing: Reactive Status: Category l Dilation (cm): 0 Effacement (%): 0 Dilation: Closed Effacement: 0-30% station: -1 Position of cervix: posterior Consistency: medium Nicole score: 3 PFSH Medical History (Updated 08/07/23 @ 16:07 by Pretty Zheng) Chicken pox Migraine without aura (~2019) Gestational diabetes mellitus (GDM) Encounter for supervision in primigravida, antepartum Kidney stone Surgical History (Updated 08/07/23 @ 16:07 by Pretty Zheng) Anesthesia History of oral surgery (~2022) [place] teeth extracted (~2012) Family History (Updated 08/07/23 @ 16:09 by Pretty Zheng) Grandmother Diabetes mellitus Hypertension Uncle Diabetes mellitus Uncle Diabetes mellitus Grandfather Family estrangement Diabetes mellitus Grandmother Dementia Hypertension Kidney disease Brother Hyperlipidemia Brother Mental health problem Social History marital status: number of children: 0 household members: spouse lives independently: Yes caregiver/support person: No housing: apartment pets and animals: No education level: college (some college) occupational status: previously employed current occupational exposures/hazards: No special shiv needs: No travel history: recent (domestic only) seatbelt use: always helmet use: Yes water heater temp set < 120 deg: Yes working smoke detector in home: Yes fire extinguisher in home: No carbon monox detector in home: Yes firearms in home: No do you feel safe at home: Yes Smoking Status: Never smoker second hand exposure: No alcohol intake: former (~2/week when not ) substance use type: does not use during the past year weight has: increased > 10 lbs well-balanced diet: daily or most days daily servings fruits/ve-4 (mostly fruit) caffeine: Yes (minimal) Type(s) of exercise: walking and bicycling (stationary bike) frequency: 3-4 times per week Meds Home Medications and Allergies Home Medications Medication Instructions Recorded Confirmed Type vitamin-ferrous sulfate See Rx Instructions .Route .COMPLEX 06/23/23 09/27/23 History 27 mg iron-folic acid 0.8 mg tablet blood sugar diagnostic (Blood #120 ea 07/05/23 09/27/23 Rx Glucose Test strips) blood-glucose meter (Blood Glucose #1 ea 07/05/23 09/27/23 Rx Monitoring kit) lancets #120 ea 07/05/23 09/27/23 Rx RSVPreF3 antigen-AS01E 0.5 ml IM ONCE #1 ea 07/30/23 09/27/23 Rx adjuvant(PF) 120 mcg/0.5 mL IM suspension, kit insulin NPH isoph U-100 human 100 10 unit (0.1 mL) SUBCUT QPM #15 mL 08/25/23 09/27/23 Rx unit/mL (3 mL) subcutaneous pen (Humulin N NPH U-100 Insulin KwikPen) pen needle, diabetic 31 gauge x #100 ea 08/25/23 09/27/23 Rx 3/16 (Comfort EZ Pen [place]) blood-glucose sensor (Dexcom G7 #3 ea 08/31/23 09/27/23 Rx Sensor device) breast pump #1 ea 08/31/23 09/27/23 Rx arm brace (True Support Wrist #1 ea 09/02/23 09/27/23 Rx Brace) Allergies Allergy/AdvReac Type Severity Reaction Status Date / Time No Known Drug Allergies Allergy Verified 09/27/23 14:00 Review of Systems Review of Systems ROS: Yes All systems reviewed with the patient and are negative except as otherwise documented OB Exam Vital signs Blood Pressure: 120/84 Pulse Rate: 85 Respiratory Rate: 18 Temperature: 97.3 F HENMT Head: normal to inspection Eyes General: appearance normal, both eyes and all related structures Resp Effort & Inspection: normal respiratory effort Cardio Rate: regular rate Extremities Lower extremity: Yes normal to inspection and edema (+1) Laterality: bilateral GI Inspection: normal to inspection Other: gravid, size approx dates gavin cephalic, 7# External Female Exam: Yes normal external appearance Speculum Exam - Vagina: Yes normal appearance of the vagina Presentation: vertex Objective Labs 09/27/23 13:19 Assessment and Plan Assessment and Plan Assessment and Plan narrative: 33yo G1 at 39w4d by 9wk OSH US presents to labor and delivery for admission, scheduled indicated induction of labor in setting of well-controlled A2GDM (insulin/metformin) IOL patient counseled on goal of induction is to acheive active labor (6cm) which may take in excess of 24h in the setting of primarity known +GBS, amp per protocol plan for cervical ripening with cervidil, planned transition to pitocin augmentation thereafter continue CEFM/toco encourage ambulation in early labor A2GDM low-dose QHS insulin 10u NPH + QHS metformin 500mg pt states non-compliance with metformin on admission, will not continue administer half-dose of current insulin (5u NPH) POCT BG checks q4h latent labor, q1-2h active labor pending clinical course, SSI as indicated per protocol Rh neg s/p rhogam, +passive anti-D on admission, rhogam Patient is consented for vaginal delivery, vaginal operative delivery, section as well as transfusion of blood products as medically indicated Dispo: admit to L&D, anticipate Time-Based Coding :: [TOTAL MINUTES] spent with patient and on the chart (including review of chart, obtaining history, exam, reviewing outside data, placing orders, documenting exam and treatment plan, and counseling patient) on [DATE].
[2023-09-27 13:36] LABS: Add Manual Diff / Slide Review NO; Basophils Absolute Auto 100 /uL (0-100); Basophils Percent Auto 0.5 % (0-2); Eosinophils Absolute Auto 100 /uL (0-450); Eosinophils Percent Auto 0.9 % (2-4); Hematocrit 39.9 % (36-46); Hemoglobin 13.5 g/dL (12.0-16.0); Lymphocytes Absolute Auto 2800 /uL (1100-4500); Mean Corpuscular HGB Conc 33.9 % (30-36); Mean Corpuscular Hemoglobin 31.7 PG (26-34); Mean Corpuscular Volume 93.5 fL (80-100); Monocytes Absolute Auto 900 /uL (0-900); Monocytes Percent Auto 5.8 % (3-14); Neutrophils Absolute Auto 11600 /uL (1500-7000); Neutrophils Percent Auto 74.8 % (50-75); Platelet Count 263 X10^3/uL (150-400); Red Blood Cell Count 4.27 X10^6/uL (4.0-5.2); Red Cell Distribution Width 13.7 % (11.6-14.8); White Blood Cell Count 15.6 X10^3/uL (4.5-11.0)
[2023-09-27 13:45] VITALS: BP 126/77
[2023-09-27] MEDS: DINOPROSTONE VAG (CERVIDIL) 10 MG VAG (14:25)
[2023-09-27] MEDS: SODIUM CHLORIDE 0.9% 1,000 ML 100 ML IV (19:06)
[2023-09-27] MEDS: fentaNYL 100 MCG/2 ML INJ 50 MCG IV (19:35)
[2023-09-27] MEDS: INSULIN NPH 100 UNIT/ML 10ML VIAL SUBCUT (22:19)
[2023-09-28] MEDS: LACTATED RINGERS 1,000 ML 100 ML IV ×3 (00:33→18:04)
[2023-09-28] MEDS: AMPICILLIN 2,000 MG in SODIUM CHLORIDE 0.9% 100 ML 200 MG IV (01:01)
[2023-09-28] MEDS: fentaNYL 100 MCG/2 ML INJ 50 MCG IV (02:37)
[2023-09-28] MEDS: AMPICILLIN 1,000 MG in SODIUM CHLORIDE 0.9% 100 ML 200 MG IV ×5 (05:26→21:11)
[2023-09-28] MEDS: OXYTOCIN PREMIX 30 UNIT/500 ML PLAST..BAG IV (08:50)
--- NOTE | 2023-09-28 08:52 | PM.OBPNLAB ---
Date/Time Date Patient Seen: 09/28/23 Time Patient Seen: 07:45 Pain Control Pain control: narcotic analgesia Comments: coping with intermittent IV analgesia, supportive measures Pelvic Exam Dilation (cm): 1 Effacement (%): 0 station: -4 Amniotic membrane status: Ruptured Contractions Contractions on admission: none Monitor mode: External Contraction pattern: Irregular Contraction intensity: Moderate Status status: Category l Heart Rate Baseline: 135 Monitor Accelerations: Present Monitor Decelerations: Absent Monitor Variability: Moderate Assessment and Plan Assessment: induction ongoing Plan: begin patient augmentation Comments: 33yo G1 at 39w5d by 9wk OSH US HD2 for IOL in setting of A2GDM at term IOL Cat 1 tracing, maternal VSS/afebrile cont CEFM/toco continue amp s/p SROM for known GBS+ start pitocin gtt for contraction augmentation anticipate interval SVE 6h post-pattern, minimize checks in setting of SROM with anticipated prolonged induction A2GDM POCT BG checks all wnl continue as per protocol anticipate vaginal delivery
--- NOTE | 2023-09-28 11:00 | PM.AN.REGBLK ---
Regional Block Pre-procedure PMH/ROS narrative: active labor PSH/Anesthesia history narrative: none Exam narrative: GDM - no insulin ASA Class: II Labs: Hct 39.9 % (36-46) 09/27/23 13:19 Plt Count 263 X10^3/uL (150-400) 09/27/23 13:19 Medications: Current Medications Generic Name Dose Route Start Last Admin Trade Name Freq PRN Reason Stop Dose Admin Carboprost Tromethamine 250 mcg 09/27/23 12:11 Carboprost 250 Mcg/Ml Ampul IM Q90M PRN Bleeding Fentanyl 50 mcg 09/27/23 19:07 09/28/23 02:37 Fentanyl 100 Mcg/2 Ml Inj IV 50 mcg Q1H PRN Administration Pain, Severe (7-10) Oxytocin/Lactated Ringer's 30 unit in 500 mls @ 200 mls/hr 09/27/23 12:11 Oxytocin Premix IV CONT PRN Bleeding Protocol Tranexamic Acid 1,000 mg/ 100 mls @ 600 mls/hr 09/27/23 12:11 Sodium Chloride IV NOW PRN Bleeding Ampicillin Sodium 1,000 mg/ 100 mls @ 200 mls/hr 09/28/23 05:00 09/28/23 08:54 Sodium Chloride IV 200 mls/hr Q4H RIGOBERTO Administration Oxytocin/Lactated Ringer's 30 unit in 500 mls @ 2 mls/hr 09/28/23 08:30 09/28/23 08:50 Oxytocin Premix IV 2 milliunit/min TITRATE RIGOBERTO 2 mls/hr Administration Protocol 2 MILLIUNIT/MIN Insulin Human NPH 5 unit 09/27/23 21:00 09/27/23 22:19 Insulin Nph 100 Unit/Ml 10ml Vial SUBCUT 5 unit BEDTIME RIGOBERTO Administration Lidocaine HCl 20 ml 09/27/23 12:11 Lidocaine 1% 20 Ml INJ INTRA-OP PRN Post Delivery Methylergonovine Maleate 0.2 mg 09/27/23 12:11 Methylergonovine 0.2 Mg Tablet PO Q6HR PRN Heavy Bleeding Methylergonovine Maleate 0.2 mg 09/27/23 12:11 Methylergonovine 0.2 Mg/Ml Vial IM NOW PRN Bleeding Mineral Oil 30 ml 09/27/23 12:11 Mineral Oil 30 Ml Udc TOP PRN PRN Version Misoprostol 800 mcg 09/27/23 12:11 Misoprostol 200 Mcg Tablet UT NOW PRN Bleeding Misoprostol 400 mcg 09/27/23 12:11 Misoprostol 200 Mcg Tablet SL NOW PRN Bleeding Naloxone HCl 0.2 mg 09/27/23 12:11 Naloxone 0.4 Mg/Ml Vial IV Q2MIN PRN Opiate Reversal Ondansetron HCl 4 mg 09/27/23 12:11 Ondansetron 4 Mg/2 Ml Inj IV Q4HR PRN Nausea And Vomiting Oxytocin 10 unit 09/27/23 12:11 Oxytocin 10 Unit/Ml Vial IM NOW PRN Bleeding Allergies: Allergies Allergy/AdvReac Type Severity Reaction Status Date / Time No Known Drug Allergies Allergy Verified 09/27/23 14:00 Procedure Insertion date: 09/28/23 Insertion time: 10:36 Prep/Local: betadine x3 and 1% lidocaine Interspace: l3 l4 Patient position: sitting Needle: 17 gauge Tuohy Loss of resistance with: saline FRANDY at (cm): 6 Catheter placed at SKIN (cm): 14 Sensory level: t10 Initial Medications TEST DOSE time: 10:37 TEST DOSE: 1.5% lidocaine with epinephrine 1:200k (mL): 3 BOLUS DOSE time: 10:42 BOLUS DOSE (mL): 5 BOLUS DOSE med: 0.125% bupivacaine with fentanyl 10 mcg/mL Infusion INFUSION: 0.0625% bupivacaine and with fentanyl 2 mcg/mL Initial rate (mL/hr): 10 Post-procedure Anesthesia date START: 09/28/23 Anesthesia time START: 10:30
[2023-09-28] MEDS: FENT 2MCG/ML BUPIV 0.125% EPI 200 MCG/100 ML PLAST..BAG 10 MCG EPIDURAL ×2 (18:04→23:50)
[2023-09-29] MEDS: ACETAMINOPHEN 325 MG TABLET 650 MG PO (00:23)
[2023-09-29] MEDS: AMPICILLIN 1,000 MG in SODIUM CHLORIDE 0.9% 100 ML 200 MG IV ×4 (01:31→14:01)
--- NOTE | 2023-09-29 06:02 | PM.OBPNLAB ---
Date/Time Date Patient Seen: 09/28/23 Time Patient Seen: 18:30 Pain Control Pain control: epidural Pelvic Exam Effacement (%): 0 station: -4 Amniotic membrane status: Ruptured Contractions Monitor mode: External Contraction pattern: Irregular Contraction intensity: Moderate Status status: Category l Heart Rate Baseline: 135 Monitor Accelerations: Present Monitor Decelerations: Absent Monitor Variability: Moderate Comments: Periods of minimal variability that are improved with increase in maternal glucose levels. Assessment and Plan Assessment: induction ongoing Comments: 33yo G1 at 39w5d by 9wk OSH US HD2 for IOL in setting of A2GDM at term IOL 8/14 am: Overnight periods of cat 2 tracing with minimal variablity improved with increase in maternal glucose level. Pitocin discontinued at approximately midnight / to cat 2 tracing. Unable to restart overnight, will reassess this morning. Maternal VSS/afebrile Continuing am s/p SROM for known GBS+ Last SVE 3 cm A2GDM POCT BG checks all wnl Continue as per protocol Anticipate vaginal delivery
--- NOTE | 2023-09-29 08:02 | PM.OBPNLAB ---
Date/Time Date Patient Seen: 09/29/23 Time Patient Seen: 07:30 Pain Control Pain control: epidural Comments: Notified per overnight on-call provider of concern for repeated episodes of minimal heart rate variability that improved with discontinuation of pitocin and permissive high-normal euglycemia of maternal patient. Improved variability noted at time of exam this AM with instructions to resume pitocin after PO TUMS Pelvic Exam Dilation (cm): 5 Effacement (%): 90 station: -1 Amniotic membrane status: Ruptured Comments: forebag ruptured, clear sanginous fluid Contractions Contractions on admission: irregular Monitor mode: External Pitocin rate (mU/min): 0 Contraction frequency (min): 7 Contraction pattern: Irregular Contraction intensity: Moderate Status status: Category l Heart Rate Baseline: 140 Monitor Accelerations: Present Monitor Decelerations: Absent Monitor Variability: Moderate Comments: reactive cat 1 tracing Assessment and Plan Assessment: induction ongoing Plan: continuous present management Comments: 33yo G1 at 39w6d by 9wk OSH US, HD3 IOL in setting of A2GDM; progressing IOL interval cervical change overnight 3cm --> 5cm this AM, forebag ruptured resume low-dose pitocin augmentation continue CEFM/[place] maternal VSS/afebrile, GBS+, SROM clear fluid midnight 09/26 (now approx 32h post rupture) without s/sx of triple-I, continue amp per protocol permissive high-normal maternal euglycemia PRN heart rate variability given robust response overnight pt and partner counseled on planned reassessment at approx 12-1300; if no further interval cervical change/advancement to active labor at that time low threshold to proceed to given prolonged ROM/IOL anticipate
[2023-09-29] MEDS: FENT 2MCG/ML BUPIV 0.125% EPI 200 MCG/100 ML PLAST..BAG 10 MCG EPIDURAL ×2 (08:11→14:30)
[2023-09-29] MEDS: CALCIUM CARBONATE 500 MG TAB PO (08:43)
[2023-09-29] MEDS: LACTATED RINGERS 1,000 ML 100 ML IV ×2 (10:07→20:14)
--- NOTE | 2023-09-29 16:40 | SUR.OPER ---
Supine on padded OR bed, head on pillow, arms secured on padded arm boards at <90 degrees abduction, legs uncrossed, safety belt at thigh, tape over blanket over lower legs.
[2023-09-29 18:16] VITALS: BP 120/84; PULSE 85; RESP 18; TEMP 36.3
[2023-09-29] MEDS: CEFAZOLIN 2 GM/100 ML PREMIX 100 ML IV (19:14)
[2023-09-29] MEDS: AZITHROMYCIN 500 MG in DEXTROSE 5% IN WATER 250 ML 250 MG IV (19:20)
[2023-09-29] MEDS: ACETAMINOPHEN IV 1,000 MG/100 ML VIAL 400 MG IV (19:31)
[2023-09-29] MEDS: TRANEXAMIC ACID 1,000 MG in SODIUM CHLORIDE 0.9% 100 ML 600 MG IV (19:50)
[2023-09-29 20:26] VITALS: BP 132/86; PULSE 98; RESP 18; TEMP 36.4; O2SAT 98
--- NOTE | 2023-09-29 20:34 | PM.OP.1 ---
Operative Date/Time/Diagnoses Date of procedure: 09/29/23 Time of procedure: 20:34 Pre-op diagnosis: 1) IUP at 39w6d; 2) failed induction of labor Post-op diagnosis: same Procedure & Clinicians Procedure: primary low transverse section Same procedure as scheduled: Yes Indications: 1) IUP at 39w6d 2) failure to progress in first stage of labor, failed induction of labor Surgeon: Rhea Flores Sourcing Manager: Tita Oliveros Anesthesia Type: Epidural Operative Notes Findings: LBFI in cephalic OP presentation, grossly normal bilateral fallopian tubes and ovaries, thin [place] noted at time of abdominal entry with edematous bladder consistent with cephalopelvic disproportion Closure Type: primary Specimen(s): none sent Estimated Blood Loss (mL): 800 Blood products transfused: none Procedure in detail: Pt was taken to the operating room and transferred to OR table.? The epidural was dosed to a surgical level per anesthesia.? The patient was placed in the supine position, prepped and draped in a sterile fashion.? Prior to incision the level of anesthesia was rechecked and found to be adequate.? A timeout was performed. A pfannensteil incision was made 2cm superior to the pubic symphysis.? This incision was carried down sharply to the level of the rectus fascia.? The fascia was incised sharply with knife and the incision was extended bilaterally and superiorly using rosario scissors. The superior border of the fascia was elevated with two Adi clamps and bluntly dissected off of the rectus muscles followed by incision of the median raphe with the rosario scissors.? Attention was then turned to the inferior border of the fascia which was dissected away from the underlying musculature in a similar manner down to the level of the pubic symphysis.? The rectus muscles were then in the midline and the peritoneum was identified.? The peritoneum was entered bluntly under direct visualization.? The peritoneal opening was then extended manually.? The profiling machine set up operator?s hand was inserted in the abdomen and the uterus was found to be in a severely dextro-rotated position. The bladder blade was then inserted. The vesicouterine peritoneum was identified, elevated using burmese forceps and incised in the midline using Metzenbaum scissors.? The incision was carried laterally and superiorly bilaterally.? A bladder flap was further developed digitally and the bladder blade was replaced.? Next, a low transverse incision was made in the uterus using the knife.? The incision was extended laterally and superiorly bilaterally bluntly.? The profiling machine set up operator?s hand was then inserted into the uterus to find an infant in the vertex OP position.? The bladder blade was removed and infant?s vertex was grasped, flexed and brought to the incision where the was delivered atraumatically using fundal pressure.? The cord was doubly clamped and cut.? The was then passed to waiting pediatricians.? The placenta was delivered via gentle traction with additional manual extraction as necessary; the placenta was then passed off the field. ? The uterus was exteriorized and the uterine cavity was wiped of all clots and debris.? The bladder blade was reinserted and the hysterotomy was inspected with noted deep bilateral extensions without involvement of either uterine artery. The incision was repaired with #0 vicryl in a running locked fashion, followed by a second #0 vicryl in an imbricating fashion.? TXA was administered at time of hysterotomy repair due to brisk bleeding, noted improvement of uterine tone with latter day of normal anatomy. Tubes, ovaries and adnexae were visualized and noted to be grossly normal in appearance.? The uterus was replaced into the abdomen without difficulty and the hysterotomy was noted to be hemostatic off of tension; perclot was placed along the denuded [place] for further hemostasis prophylaxis.? The rectus fascia was closed using #1 vicryl in a running fashion.? The incision was irrigated and hemostasis was achieved using the bovie.? The subcutaneous space was reapproximated using plain gut suture in a running fashion.? The skin was closed using 4-0 monocryl followed by application of BRISSA dressing.? All counts were correct x2.? The pt tolerated the procedure well and without difficulty. Fundal contents were expressed and fundus noted to be firm, level noted prior to patient transfer to PACU in stable condition.? Complications: none Post-operative Condition: stable Disposition: PACU
[2023-09-29 20:41] VITALS: BP 143/82; PULSE 88; RESP 16; TEMP 36.7; O2SAT 99
[2023-09-29] MEDS: OXYTOCIN PREMIX 30 UNIT/500 ML PLAST..BAG 200 UNIT IV (21:35)
[2023-09-30] MEDS: ACETAMINOPHEN 325 MG TABLET 650 MG PO ×5 (03:17→20:49)
[2023-09-30] MEDS: LANOLIN OINT 7 GM 1 APPLIC TOP (03:18)
[2023-09-30] MEDS: KETOROLAC 30 MG/ML VIAL IV ×3 (05:27→17:22)
[2023-09-30 06:20] LABS: Add Manual Diff / Slide Review NO; Basophils Absolute Auto 100 /uL (0-100); Basophils Percent Auto 0.3 % (0-2); Eosinophils Absolute Auto 0 /uL (0-450); Hematocrit 29.4 % (36-46); Hemoglobin 10.1 g/dL (12.0-16.0); Lymphocytes Absolute Auto 2000 /uL (1100-4500); Mean Corpuscular HGB Conc 34.4 % (30-36); Mean Corpuscular Hemoglobin 32.2 PG (26-34); Mean Corpuscular Volume 93.4 fL (80-100); Monocytes Absolute Auto 1000 /uL (0-900); Monocytes Percent Auto 4.1 % (3-14); Neutrophils Absolute Auto 22300 /uL (1500-7000); Neutrophils Percent Auto 87.6 % (50-75); Platelet Count 206 X10^3/uL (150-400); Red Blood Cell Count 3.14 X10^6/uL (4.0-5.2); Red Cell Distribution Width 13.5 % (11.6-14.8); White Blood Cell Count 25.5 X10^3/uL (4.5-11.0)
[2023-09-30] MEDS: FERROUS SULFATE 325 MG TABLET PO (08:36)
[2023-09-30] MEDS: PRENATAL VIT,CALC/IRON/FOLIC 1 TABLET 1 TAB PO (08:36)
[2023-09-30] MEDS: RHO(D) IMMUNE GLOBULIN 1,500 UNIT SYRINGE 1500 UNIT IM (11:21)
--- NOTE | 2023-09-30 13:14 | PM.OBPN.1 ---
Subjective - OB Subjective Patient comments: no complaints, pain well controlled, tolerating diet, flatus present and other (catheter removed an hour ago) baby status: doing well and nursing well [place] feeding status: exclusively breast feeding Date Patient Seen: 09/30/23 Time Patient Seen: 13:14 Interval history: POD#0-1 s/p Primary C section for a stage 1 arrest of labor Nursing going well. Ambulating. Pain well controlled. Catheter out an hour ago Exam Vital Signs (past 8 hours): Oxygen Delivery Method Room Air Narrative Exam Narrative: Generally: Patient is sitting up in bed, feeding , no acute distress Lungs: Clear to auscultation bilaterally Cardiovascular: Regular rate and rhythm Fundus: Firm at U Incision: Clean dry and intact with deidre dressing Extremities: Trace edema, negative Homans Objective Labs 09/30/23 06:06 Labs: Laboratory Results - last 24 hr 09/30/23 06:06 WBC 25.5 H RBC 3.14 L Hgb 10.1 L Hct 29.4 L MCV 93.4 MCH 32.2 MCHC 34.4 RDW 13.5 Plt Count 206 Neut % (Auto) 87.6 H Lymph % (Auto) 8.0 L [place] % (Auto) 4.1 Eos % (Auto) 0.0 L Baso % (Auto) 0.3 Neut # (Auto) 16830 H Lymph # (Auto) 2000 [place] # (Auto) 1000 H Eos # (Auto) 0 Baso # (Auto) 100 Maternal Bleed Negative Assessment & Plan Plan day: 1 plan OB: routine postop care Comments: If no void in 4 hours, do bladder scan Time-Based Coding :: [TOTAL MINUTES] spent with patient and on the chart (including review of chart, obtaining history, exam, reviewing outside data, placing orders, documenting exam and treatment plan, and counseling patient) on [DATE].
[2023-09-30] MEDS: OXYCODONE IR 5 MG TABLET PO (20:49)
[2023-10-01] MEDS: IBUPROFEN 600 MG TABLET PO ×3 (00:50→16:44)
[2023-10-01] MEDS: ACETAMINOPHEN 325 MG TABLET 650 MG PO ×2 (06:36→13:50)
--- NOTE | 2023-10-01 07:46 | PM.OBPN.1 ---
Subjective - OB Subjective Patient comments: pain well controlled [place] baby status: doing well and nursing well [place] feeding status: exclusively breast feeding Date Patient Seen: 10/01/23 Time Patient Seen: 07:46 Interval history: POD2 s/p 1LTCS secondary to failure to progress in first stage; doing well Exam Vital Signs (past 8 hours): Oxygen Delivery Method Room Air Const General: cooperative and comfortable Nutritional Appearance: obese Orientation: alert, awake and oriented x3 Limitations: mental status not altered HENMT Head: normal to inspection Mouth: moist mucous membranes Resp Effort & Inspection: normal respiratory effort Cardio Pulses: normal peripheral pulses GI Inspection: incision Palpation: soft Other: fundus firm << umb, non-tender BRISSA in place, adequate seal, c/d/i Other: deferred, lochia wnl per RN Skin General: no rashes or lesions noted Neuro General: patient alert, patient awake and patient oriented x3 Extrem General: normal to inspection Psych Mental Status: mental status grossly normal Judgment: fair Objective Labs 09/30/23 06:06 Assessment & Plan Plan day: 2 plan OB: routine postop care Comments: 33yo POD2 s/p 1LTCS of LBFI, failed IOL in setting of maternal A2GDM Postop/ routine care, fully advanced encourage ambulation, +flatus, reassured BM is not necessary prior to discharge, milk of mag ordered per pt request , support PRN Rh neg A2GDM euglycemic since delivery 6wk 2h OGTT Anticipate dc to home either later today, POD2 vs POD3 pending clearance per peds; routine 1wk incision check in office, 4-6wk f/u thereafter Time-Based Coding :: [15 minutes] spent with patient and on the chart (including review of chart, obtaining history, exam, reviewing outside data, placing orders, documenting exam and treatment plan, and counseling patient) on [10/01/23].
[2023-10-01] MEDS: FERROUS SULFATE 325 MG TABLET PO (10:18)
[2023-10-01] MEDS: PRENATAL VIT,CALC/IRON/FOLIC 1 TABLET 1 TAB PO (10:18)
[2023-10-01] MEDS: OXYCODONE IR 5 MG TABLET PO ×2 (10:18→16:43)
--- NOTE | 2023-10-01 16:31 | PM.OBDS.1 ---
Discharge Providers Provider Date of admission: 09/27/23 11:37 Discharge Date: 10/01/23 Primary care physician: Sarah WAGNER Provider Consults: 09/29/23 20:31 Consult to Siderographer Routine Comment: Discharge provider: Maris Bates DO Summary Hospital Course Date Patient Seen: 10/01/23 Diagnoses: 1) IUP at 39w6d 2) failed induction of labor 3) primary low transverse section 4) gestational diabetes, class A2 Hospital Course: 33-year-old at 39 +6 weeks admitted for induction of labor due to GDM A2. Her induction was unsuccessful, thus she was counseled for primary low transverse section. Her delivery was uncomplicated, and productive of a viable female infant. Her course was uncomplicated. By postop day #2, she was ambulating, tolerating regular diet, voiding spontaneously, with minimal lochia. Thus she was discharged to home on postop day #2. Peripartum Data Delivery Method: Section Procedures: External monitoring Induction of labor Epidural anesthesia delivery complications: none Discharge Diagnosis (1) Gestational diabetes mellitus (GDM): Status: Acute (2) delivery delivered: Status: Acute Status at Discharge Cognitive/behavioral status at discharge: oriented Functional status at discharge: independent ambulation Overall status at discharge: patient is progressing back to baseline Time Spent with Patient Time attestation: Total time spent providing and/or coordinating discharge services: Time spent: Less than 30 minutes Objective Labs 09/30/23 06:06 Exam Vital Signs (past 8 hours): Oxygen Delivery Method Room Air Narrative Exam Narrative: See progress note by Dr. Flores on this date Const General: healthy appearing, comfortable and No acute distress Resp Effort & Inspection: normal respiratory effort GI Inspection: normal to inspection Other: fundus firm and nontender Skin Other: Low-transverse incision covered with BRISSA dressing Neuro General: patient alert and patient awake Psych Mood: congruent mood Affect: normal affect Discharge Plan Discharge Plan Patient Disposition: Home Provider Discharge Comment: Take ibuprofen 600 mg every 6 hours and acetaminophen 650 mg every 6 hours as needed for pain. Use oxycodone 4 mg every 4 hours as needed for breakthrough pain. Avoid lifting greater than 20 lb for at least 6 weeks. Avoid placing anything in the vagina for 6 weeks. Discharge orders & Medications Prescriptions: New oxycodone 5 mg Tablet 5 mg PO Q4H PRN (Reason: Pain, Moderate (4-6)) Qty: 10 0RF Continued (DME) True Support Wrist Brace Misc See Rx Instructions .Route Qty: 1 0RF Rx Instructions: As directed vit-ferrous sulfat-FA 27 mg iron- 0.8 mg tablet See Rx Instructions .ROUTE .COMPLEX Rx Instructions: Take as directed (DME) breast pump Device See Rx Instructions .Route Qty: 1 0RF Rx Instructions: double electric breast pump Discontinued (DME) Blood Glucose Test Strip See Rx Instructions .ROUTE .MEDSUPPLY Qty: 120 3RF Rx Instructions: Testing blood sugars Fasting and 2 hours after each meal 4x daily (DME) lancets Misc See Rx Instructions .ROUTE .MEDSUPPLY Qty: 120 3RF Rx Instructions: Testing blood sugars 4x daily (DME) blood-glucose meter [Blood Glucose Monitoring] Kit See Rx Instructions .ROUTE .MEDSUPPLY Qty: 1 0RF Rx Instructions: To use with testing fasting and 2 hrs after each meal 4x daily Humulin N NPH Insulin KwikPen 100 unit/mL (3 mL) insulin pen 10 unit SUBCUT QPM Qty: 15 3RF (DME) pen needle, diabetic [Comfort EZ Pen [place]] 31 gauge x 3/16 needle See Rx Instructions .Route Qty: 100 0RF Rx Instructions: To use with insulin pen (DME) Dexcom G7 Sensor Device See Rx Instructions .Route Qty: 3 3RF Rx Instructions: As directed RSVPreF3 antigen-AS01E (PF) 120 mcg/0.5 mL suspension for reconstitution 0.5 ml IM ONCE Qty: 1 0RF Follow up/Referrals: Rhea Flores MD [Physician] - 1 Week (1 week incisional check with Dr. Rhea Flores, October 08, 2023 @ 1215 6 [address] check with Dr. Rhea Flores, November 10, 2023 @ 1130.) Diet/Activity/Treatments Diet: Diet as Tolerated Activity: As tolerated Skin/Wound/Dressing Care Skin care: You may shower normally. Your brissa dressing will come off after 1 week. Report to your healthcare provider any signs of infection, such as:: chills, fever, increased pain, unusual drainage and unusual redness Visit Report/Discharge Packet Instructions: DI for Hemorrhage, DI for Stand Alone Forms: Patient Portal/API, Stroke Signs & Symptoms Discharge Data Primary Care Provider: ProviderSarah
[2023-10-01] MEDS: MAGNESIUM HYDROXIDE 30 ML UDC PO (16:43)
== END 2023-10-01 17:20 | disposition home or self-care (01) | DRG 788 ==
PROVIDERS: Admitting Provider Obstetrics & Gynecology; Referring Provider Obstetrics & Gynecology; Visit Provider Obstetrics & Gynecology
PROC: 10D00Z1 Extraction of Products of Conception, Low, Open Approach (ICD-10-PCS; CPT 59514; principal; 2023-09-29 20:00)
DX: O61.0 Failed medical induction of labor (principal); O24.424 Gestational diabetes mellitus in childbirth, insulin controlled; O24.425 Gestational diabetes mellitus in childbirth, controlled by oral hypoglycemic drugs; O76 Abnormality in fetal heart rate and rhythm complicating labor and delivery; Z3A.39 39 weeks gestation of pregnancy; Z37.0 Single live birth; O99.824 Streptococcus B carrier state complicating childbirth
CPT/HCPCS: 36415; 59050; 59200; 82962; 85025; 85461; 86850; 86870; 86900; 86901; G0379; J0136; J0290; J0690; J1100; J1885; J2274; J2405; J2590; J2790; J3010

== ENCOUNTER → 2023-11-22 09:20 | Outpatient (CLI) | payer OTHER, SELFPAY ==
[2023-11-22 10:42] LABS: Glucose Fasting 78 mg/dL (70-100)
[2023-11-22 11:38] LABS: Glucose Tol Interpretation INTERPRETATION
[2023-11-22 12:15] LABS: Glucose 1 Hour 132 mg/dL (70-170)
[2023-11-22 15:16] LABS: Glucose 2 Hour 88 mg/dL (70-140)
== END ==
PROVIDERS: Referring Provider Obstetrics & Gynecology; Visit Provider Obstetrics & Gynecology
DX: Z86.32 Personal history of gestational diabetes (principal)
CPT/HCPCS: 36415; 82951; 82952

== ENCOUNTER → 2024-04-27 07:29 | Outpatient (CLI) | payer OTHER, SELFPAY ==
[2024-04-27 08:48] LABS: Appearance Urine UA CLEAR; Bilirubin Urine UA NEGATIVE (NEGATIVE); Color Urine UA YELLOW; Glucose Urine UA NEGATIVE (Negative); Ketones Urine UA NEGATIVE (NEGATIVE); Leukocyte Esterase Urine UA 1+ (NEGATIVE); Nitrite Urine UA NEGATIVE (Negative); Occult Blood Urine UA NEGATIVE (Negative); Protein Urine UA NEGATIVE (Negative); Urobilinogen Urine UA 0.2 E.U./dL (0.2)
[2024-04-27 08:53] LABS: Alanine Aminotransferase 85 IU/L (<35); Albumin 4.3 g/dL (3.5-5.0); Albumin Globulin Ratio 1.5 (1.0-2.8); Alkaline Phosphatase 107 U/L (38-126); Aspartate Aminotransferase 44 IU/L (14-36); BUN Creatinine Ratio 23.4 (6-22); Bilirubin Total 0.3 mg/dL (0.2-1.3); Blood Urea Nitrogen 15 mg/dL (7-17); Calcium 9.4 mg/dL (8.4-10.2); Carbon Dioxide 22 mmol/L (22-32); Chloride 105 mmol/L (98-107); Estimated Glomerular Filt Rate > 60 mL/min (>60); Globulin 2.8 g/dL (1.7-4.1); Glucose 88 mg/dL (70-100); HEMOLYSIS < 15 (0-50); Potassium 4.1 mmol/L (3.4-5.1); Sodium 139 mmol/L (137-145); Total Protein 7.1 g/dL (6.3-8.2)
[2024-04-27 08:59] LABS: Bacteria Urine Few (2-10); Culture Indicated Urine Specimen Cultured; RBC Urine None Seen (0-5/HPF); Squamous Epithelial Cell Urine 5-10 /HPF (0-5/HPF); Urine Volume 10mL (spun); WBC Urine 5-10/HPF (0-5/HPF)
== END ==
PROVIDERS: Referring Provider Chiropractor; Visit Provider Chiropractor
DX: J06.9 Acute upper respiratory infection, unspecified (principal); N20.0 Calculus of kidney
CPT/HCPCS: 36415; 80053; 81001; 87086; 94060